=== PATIENT | female | born 1960 | race American Indian/Alaskan Native ===

== ENCOUNTER 2022-03-04 02:01 | Emergency (ER) | payer MEDICARE ==
[2022-03-04] MEDS ORDERED: SODIUM CHLORIDE 0.9% 1000 ML 1,000 ML IV ONE (03:05)
[2022-03-04] MEDS ORDERED: MORPHINE 4 MG/1 ML INJ IV ONE (03:06)
[2022-03-04] MEDS ORDERED: ONDANSETRON 4 MG/2 ML INJ IV ONE (03:06)
[2022-03-04 03:44] LABS: INR 0.92 (0.87-1.13)
[2022-03-04 03:51] LABS: Creatine Kinase MB 1.5 ng/mL (0.0-4.0)
[2022-03-04 03:52] LABS: Alanine Aminotransferase 10 units/L (7-56); Albumin 4.4 g/dL (3.9-5); Basophils % (Auto) 0.1 % (0.0-1.8); Blood Urea Nitrogen 17 mg/dL (7-17); Calcium 9.4 mg/dL (8.4-10.2); Eosinophils % (Auto) 0.3 % (0.0-4.3); Hemoglobin 10.9 gm/dl (10.1-14.3); Hemolysis Index 4; Lymphocytes # (Auto) 0.5 K/mm3 (1.2-5.4); Lymphocytes % (Auto) 4.5 % (13.4-35.0); Mean Corpuscular HGB Conc 33 % (30-34); Mean Corpuscular Volume 92 fl (79-97); Monocytes # (Auto) 0.8 K/mm3 (0.0-0.8); Monocytes % (Auto) 8.1 % (0.0-7.3); Platelet Count 245 K/mm3 (140-440); Red Blood Count 3.57 M/mm3 (3.65-5.03)
--- NOTE | 2022-03-04 03:53 | Emergency Department Report ---
ED General Adult HPI - General Stated complaint: SYNCOPAL EPISODE/ABD PAIN PUI?: Yes Time Seen by Provider: 03/04/22 03:05 Source: patient, EMS Mode of arrival: Stretcher Limitations: No Limitations - History of Present Illness Initial comments: pt is from [place] here for her graduation this am , she thinks she had food poisoning , started vomiting and has polymiositis and whenever she feels cold she cannot move , no chest pain no osb -: Gradual, hour(s) Location: abdomen Radiation: non-radiation Severity scale (0 -10): 2 Quality: aching Consistency: intermittent Improves with: eating Worsens with: none Associated Symptoms: nausea/vomiting ED Review of Systems ROS: Stated complaint: SYNCOPAL EPISODE/ABD PAIN Other details as noted in HPI Constitutional: denies: chills, fever Eyes: denies: eye pain, eye discharge, vision change ENT: denies: ear pain, throat pain Respiratory: denies: cough, shortness of breath, wheezing Cardiovascular: denies: chest pain, palpitations Endocrine: no symptoms reported Gastrointestinal: denies: abdominal pain, nausea, diarrhea Genitourinary: denies: urgency, dysuria, discharge Musculoskeletal: denies: back pain, joint swelling, arthralgia Skin: denies: rash, lesions Neurological: denies: headache, weakness, paresthesias Psychiatric: denies: anxiety, depression Hematological/Lymphatic: denies: easy bleeding, easy bruising ED Past Medical Hx - Past Medical History Hx Hypertension: Yes ED Physical Exam - General General appearance: alert, in no apparent distress - Head Head exam: Present: atraumatic, normocephalic - Eye Eye exam: Present: normal appearance - ENT ENT exam: Present: mucous membranes moist - Neck Neck exam: Present: normal inspection - Respiratory Respiratory exam: Present: normal lung sounds bilaterally. Absent: respiratory distress - Cardiovascular Cardiovascular Exam: Present: regular rate, normal rhythm. Absent: systolic murmur, diastolic murmur, rubs, gallop - GI/Abdominal GI/Abdominal exam: Present: soft, normal bowel sounds - Extremities Exam Extremities exam: Present: normal inspection - Back Exam Back exam: Present: normal inspection - Neurological Exam Neurological exam: Present: alert, oriented X3 - Psychiatric Psychiatric exam: Present: normal affect, normal mood - Skin Skin exam: Present: warm, dry, intact, normal color. Absent: rash ED Medical Decision Making - Lab Data Result diagrams: 03/04/22 03:15 03/04/22 03:15 - EKG Data -: EKG Interpreted by Me EKG shows normal: sinus rhythm Rate: normal - EKG Data Interpretation: nonspecific ST-T wave [place] - Radiology Data Radiology results: report reviewed, image reviewed - Medical Decision Making pt refused blood work and ct scan she said she feels better and wants to go home , denies any symtpoms now , vss no distress, verbalised understanding of risks Critical care attestation.: If time is entered above; I have spent that time in minutes in the direct care of this critically ill patient, excluding procedure time. ED Disposition Clinical Impression: Syncope, Vomiting Disposition: 01 HOME / SELF CARE / HOMELESS Is pt being admited?: No Does the pt Need Aspirin: No Condition: Stable Instructions: Near-Syncope, [id number], Nausea and Vomiting, Adult, Syncope (ED)
--- NOTE | 2022-03-04 03:54 | XRay Report ---
CHEST 1 VIEW 03/04/2022 2:30 AM INDICATION / CLINICAL INFORMATION: Syncope. COMPARISON: None available. FINDINGS: SUPPORT DEVICES: None. HEART / MEDIASTINUM: No significant abnormality. LUNGS / PLEURA: No significant pulmonary abnormality. No significant pleural effusion. No pneumothora x. ADDITIONAL FINDINGS: No significant additional findings. IMPRESSION: 1. No acute abnormality of the chest. Signer Name: Guy Ellsworth MD Signed: 03/04/2022 3:50 AM Workstation Name: [id number]
[2022-03-04 04:13] LABS: BUN/Creatinine Ratio 24
[2022-03-04 05:29] VITALS: BP 127/71
--- NOTE | 2022-03-05 18:12 | Electrocardiograph Report ---
[facility] Test Date: 2022-03-04 Test Time: 03:24:02 Pat Name: RAMOS FATIMA Department: Room: Gender: F [employer]: NAJMA : 1960 Requested By: SOPHIE MARTÍNEZ Order Number: [id number] Reading MD: Diego Styles Measurements Intervals [place] Rate: 78 P: 59 NC: 179 QRS: 54 QRSD: 80 T: 22 QT: 385 QTc: 438 Interpretive Statements Sinus rhythm Nonspecific T abnrm, anterolateral leads No previous ECG available for comparison Electronically Signed On 03-05-2022 18:12:28 EDT by Diego Styles
== END 2022-03-04 04:30 | disposition home or self-care (01) ==
LOC: ED 02:01
DX: R55 Syncope and collapse (principal); R11.10 Vomiting, unspecified; I10 Essential (primary) hypertension
CPT/HCPCS: 36415; 71045; 80053; 82550; 82553; 83735; 84484; 85025; 85610; 93005; 99284